=== PATIENT | female | born 1975 | race Caucasian/White ===

== ENCOUNTER 2021-08-24 11:53 | Outpatient (CLI) | payer OTHER, SELFPAY ==
--- NOTE | 2021-08-24 | MM_ITS ---
WS: [id number] SCREENING 3D TOMOSYNTHESIS DIGITAL MAMMOGRAM WITH CAD HISTORY: SCREENING COMPARISON: 06/02/2019, 05/01/2016 Bilateral CC and MLO views submitted. Computer aided detection analyzed. Breast composition: There are scattered areas of fibroglandular density. Area of mild asymmetry and distortion in the lateral RIGHT breast just above the nipple line. On the tomosynthesis evaluation this becomes less obvious. I favor this will probably be normal superimposed fibroglandular densities. On the synthetic view this is slightly lobulated and of increased density. MM/[place] [id number] IMPRESSION: BI-RADS: 0-Incomplete: Need additional imaging evaluation FOLLOW UP: Need Additional Imaging RIGHT breast: Spot compression views (CC and MLO). True ML. Ultrasound to follo w if abnormality persists.
== END 2021-08-24 11:54 | disposition home or self-care (01) ==
PROVIDERS: PCP Physician Assistant; Visit Provider Physician Assistant
DX: Z12.31 Encounter for screening mammogram for malignant neoplasm of breast (principal)
CPT/HCPCS: 77063; 77067

== ENCOUNTER 2021-09-25 13:10 | Outpatient (CLI) | payer OTHER, SELFPAY ==
--- NOTE | 2021-09-25 13:17 | MM_ITS ---
WS: [id number] ADDITIONAL VIEWS RIGHT MAMMOGRAM WITH DIGITAL BREAST TOMOSYNTHESIS. RIGHT BREAST ULTRASOUND HISTORY: ABNORMAL MAMMO COMPARISON: 08/24/2021 RIGHT MAMMOGRAM: Spot compression views and true ML with digital breast tomosynthesis and SM. The asymmetry upper-outer quadrant at a middle depth nearly resolves with additional imaging. No unde rlying mass. Ultrasound will be performed to confirm no shadowing or mass present. RIGHT BREAST ULTRASOUND 2-D and color Doppler imaging submitted. Ultrasound is directed to the upper outer quadrant of the RIGHT breast. No mass or distortion identif ied. There is no shadowing. MM/[place] [id number] IMPRESSION: BI-RADS: 2-Benign FOLLOW UP: 1 Year Follow-up
== END 2021-09-25 13:11 | disposition home or self-care (01) ==
PROVIDERS: PCP Physician Assistant; Visit Provider Physician Assistant
DX: R92.8 Other abnormal and inconclusive findings on diagnostic imaging of breast (principal)
CPT/HCPCS: 76642; 77061

== ENCOUNTER → 2021-12-10 08:30 | Outpatient (BNVA) | payer OTHER, SELFPAY | PROVIDERS: Visit Provider Family Medicine | DX: F40.243 Fear of flying (principal); F41.8 Other specified anxiety disorders; Z76.89 Persons encountering health services in other specified circumstances; Z86.2 Personal history of diseases of the blood and blood-forming organs and certain disorders involving the immune mechanism | CPT/HCPCS: 80053; 80061; 83036; 84443; 85025 ==

== ENCOUNTER 2022-10-09 09:13 | Outpatient (CLI) | payer OTHER, SELFPAY ==
--- NOTE | 2022-10-09 09:23 | MM_ITS ---
WS: [id number] SCREENING DIGITAL TOMOSYNTHESIS MAMMOGRAM WITH CAD HISTORY: SCREENING COMPARISON: 09/25/2021, 08/24/2021, 06/02/2019 Bilateral CC and MLO with tomosynthesis views submitted. Synthetic mammography reviewed. Computer aid ed detection analyzed. Breast composition: There are scattered areas of fibroglandular density. No suspicious masses, microc alcifications or architectural distortion. MM/[place] [id number] IMPRESSION: BI-RADS: 1-Negative FOLLOW UP: 1 Year Follow-up
== END 2022-10-09 09:14 | disposition home or self-care (01) ==
LOC: RAD 09:15
PROVIDERS: PCP Family Medicine; Visit Provider Family Medicine
DX: Z12.31 Encounter for screening mammogram for malignant neoplasm of breast (principal)
CPT/HCPCS: 77063; 77067

== ENCOUNTER → 2022-12-30 15:20 | Outpatient (BNVA) | payer OTHER, SELFPAY | PROVIDERS: PCP Family Medicine; Visit Provider Family Medicine | DX: Z01.419 Encounter for gynecological examination (general) (routine) without abnormal findings (principal) | CPT/HCPCS: 88175 ==

== ENCOUNTER → 2023-01-06 10:56 | Outpatient (BNVA) | payer OTHER, SELFPAY | PROVIDERS: PCP Family Medicine; Visit Provider Surgery | DX: Z12.11 Encounter for screening for malignant neoplasm of colon (principal) | CPT/HCPCS: 99024; 99202; 99203 ==

== ENCOUNTER 2023-10-14 08:50 | Outpatient (CLI) | payer BC, SELFPAY ==
--- NOTE | 2023-10-14 09:00 | MM_ITS ---
WS: [id number] BILATERAL 3D TOMOSYNTHESIS DIGITAL SCREENING MAMMOGRAPHY WITH CAD CLINICAL INFORMATION: screening HISTORY: Screening mammogram. No current complaints. COMPARISON: 2022 TECHNIQUE: Bilateral CC and MLO views. FINDINGS: Scattered fibroglandular densities bilaterally. No suspicious focal mass, asymmetry, calcifications, or architectural distortion. No evidence of malignancy. MM/[place] [id number] IMPRESSION: BI-RADS: 1-Negative FOLLOW UP: 1 Year Follow-up Recommend return to annual screening mammography.
== END 2023-10-14 08:51 | disposition home or self-care (01) ==
LOC: RAD 08:51
PROVIDERS: PCP Family Medicine; Visit Provider Family Medicine
DX: Z12.31 Encounter for screening mammogram for malignant neoplasm of breast (principal); R92.323 Mammographic fibroglandular density, bilateral breasts
CPT/HCPCS: 77063; 77067

== ENCOUNTER 2023-11-19 06:26 | Day surgery (SDC) | payer BC, SELFPAY ==
--- NOTE | 2023-11-19 06:02 | W.PM.OPSFHP ---
Same Day Surgery H&P Indication for Procedure/HPI DATE OF PROCEDURE: November 19, 2023 CHIEF COMPLAINT/INDICATIONFOR SURGICAL PROCEDURE: need for screening colonoscopy PREOP DIAGNOSIS: need for screening colonoscopy PLANNED PROCEDURE: Operation Date: 11/19/23 07:40 Proposed Procedures p Colonoscopy 44357, G0105, Z12.11(Not Applicable) - Jeb Wilson MD Medications/Allergies* Home Medications Medication Instructions Recorded Confirmed Type levonorgestrel 21 mcg/24 hr (up to 1 device intrauterine UNK 11/07/21 11/17/23 History 8 years) 52 mg intrauterine device (Mirena) famotidine 10 mg tablet 10 mg PO DAILY 01/06/23 11/17/23 History acyclovir 400 mg tablet 400 mg PO BID PRN break out 11/17/23 11/17/23 History ashwagandha root extract 500 mg 1,000 mg PO DAILY 11/17/23 11/17/23 History capsule cetirizine 10 mg tablet (Zyrtec) 10 mg PO DAILY 11/17/23 11/17/23 History Allergies/Adverse Reactions Allergy/AdvReac Type Severity Reaction Status Date / Time latex Allergy ALGY-Hives Verified 11/17/23 11:28 naproxen Allergy ALGY-Hives Verified 11/17/23 11:28 Pertinent History/Comorbid Conditions* Surgical History (Updated 12/30/22 @ 15:15 by Gely Gutierrez DO) No pertinent past surgical history Family History (Updated 01/06/23 @ 11:02 by JAIR Scott) High cholesterol Father Cancer Father colon cancer Hypertension Father Social History Smoking and tobacco/nicotine status: never used tobacco/nicotine Alcohol intake: current Alcohol intake frequency: holidays/special occasions only Substance/Drug Use: never Pertinent Exam Findings alert, oriented x 3, clear to auscultation bilaterally and regular rate & rhythm Recommendations Surgery/Procedure today Coding Level of Care Code Acute Code for Chg Fwd
[2023-11-19 06:35] VITALS: BP 134/101; PULSE 96; RESP 16; TEMP 36.4; O2SAT 98; BMI 40.6
[2023-11-19] MEDS: sodium chloride 0.9% 1,000 ML 30 ML IV (07:02)
--- NOTE | 2023-11-19 07:14 | ANES.PREANE2 ---
Pre-Anesthetic Assessment Height/Weight: Height 1.63 m Weight 107.501 kg Temp Pulse Resp BP Pulse Ox O2 Del Method 97.5 F L 96 16 134/101 98 Room Air 11/19/23 06:35 11/19/23 06:35 11/19/23 06:35 11/19/23 06:35 11/19/23 06:35 11/19/23 06:35 Preop Diagnosis: need for screening colonoscopy Operation Date: 11/19/23 07:40 Proposed Procedures p Colonoscopy 68752, G0105, Z12.11(Not Applicable) - Jeb Wilson MD Familial anesthetic complications: None Was Beta Kian taken within 24 hours: N/A Was Clonidine taken within 24 hours: N/A Last intake: Intake Last Liquid Date 11/18/23 Last Liquid Time 23:55 Last Solid Date 11/17/23 Last Solid Time 18:30 Social No alcohol and No tobacco Exam alert, oriented x 3 and clear to auscultation bilaterally Airway Mallampati: Class II Dentition: full History/ROS No significant history except as noted Pulmonary None reported CV/HEM None reported None reported Hepatic None reported GI None reported Metabolic None reported Musc/skel None reported Neuropsych None reported Anesthetic Plan ASA status: 2 Anesthesia: Anesthesia Evaluation and MAC Medications/Allergies Home Medications Medication Instructions Recorded Confirmed Last Taken Type levonorgestrel 21 mcg/24 hr (up to 1 device intrauterine UNK 11/07/21 11/19/23 11/17/23 History 8 years) 52 mg intrauterine device (Mirena) famotidine 10 mg tablet 10 mg PO DAILY 01/06/23 11/19/23 11/18/23 History alprazolam 0.25 mg tablet 0.25 mg PO DAILY PRN anxiety, 09/22/23 11/17/23 Unknown Rx flying #30 tabs nystatin 100,000 unit/gram topical 1 applic topical DAILY PRN rash 09/22/23 11/19/23 11/18/23 Rx cream #30 grams acyclovir 400 mg tablet 400 mg PO BID PRN break out 11/17/23 11/19/23 11/17/23 History ashwagandha root extract 500 mg 1,000 mg PO DAILY 11/17/23 11/17/23 11/17/23 History capsule cetirizine 10 mg tablet (Zyrtec) 10 mg PO DAILY 11/17/23 11/19/23 11/18/23 History Allergies Allergy/AdvReac Type Severity Reaction Status Date / Time latex Allergy ALGY-Hives Verified 11/17/23 11:28 naproxen Allergy ALGY-Hives Verified 11/17/23 11:28 Current Medications Generic Name Dose Route Start Last Admin Trade Name Freq PRN Reason Stop Dose Admin Sodium Chloride 1,000 mls @ 30 mls/hr 11/19/23 06:30 11/19/23 07:02 Sodium Chloride 0.9% IV 30 mls/hr .Q24H ARABELLA Administration PFSH Anesthesia Surgical History No pertinent past surgical history Family History Father Cancer colon cancer Hypertension High cholesterol Social History Smoking and tobacco/nicotine status: never used tobacco/nicotine Alcohol intake: current Alcohol intake frequency: holidays/special occasions only Substance/Drug Use: never Data Anesthesia Cardiac Studies: No Data to Display
[2023-11-19 07:26] LABS: HCG, Serum Qual Negative (Negative)
[2023-11-19 08:12] VITALS: BP 132/75; PULSE 76; RESP 12; TEMP 36.3; O2SAT 96
--- NOTE | 2023-11-19 08:18 | ANE.PACU2 ---
Inpatient post-anesthesia follow up: Vital signs: Temperature 97.4 F Pulse Rate 76 Respiratory Rate 12 Blood Pressure 132/75 Pulse Oximetry 96 Oxygen Delivery Me thod Room Air Oxygen Flow Rate Fraction of Inspir ed Oxygen Hydration adequate: Yes Nausea and vomiting: No Pain level: 0 Mental status: Baseline
[2023-11-19 08:36] VITALS: BP 121/90; PULSE 68; RESP 18; O2SAT 96
--- NOTE | 2023-11-19 08:40 | ANE.PACU2 ---
Inpatient post-anesthesia follow up: Airway intact: Yes Vital signs: Temperature 97.4 F Pulse Rate 68 Respiratory Rate 18 Blood Pressure 121/90 Pulse Oximetry 96 Oxygen Delivery Me thod Room Air Oxygen Flow Rate Fraction of Inspir ed Oxygen Hydration adequate: Yes Nausea and vomiting: No Pain level: 1 Mental status: Baseline
[2023-11-19 12:25] LABS: OR HCG Qualitative Urine Positive (Negative)
== END 2023-11-19 08:41 | disposition home or self-care (01) ==
PROVIDERS: Anesthesiology; PCP Family Medicine; Visit Provider Surgery
PROC: 0DJD8ZZ Inspection of Lower Intestinal Tract, Via Natural or Artificial Opening Endoscopic (ICD-10-PCS; CPT 45378; principal; 2023-11-19 07:40)
DX: Z12.11 Encounter for screening for malignant neoplasm of colon (principal); D12.5 Benign neoplasm of sigmoid colon
CPT/HCPCS: 36415; 45385; 81025; 84703; 88305; J2704; J7030

== ENCOUNTER → 2024-03-24 13:38 | Outpatient (BNVA) | payer BC, SELFPAY | DX: R79.89 Other specified abnormal findings of blood chemistry (principal) | CPT/HCPCS: 80053; 85025 ==

== ENCOUNTER → 2024-06-01 16:03 | Outpatient (BNVA) | payer BC, SELFPAY | PROVIDERS: Visit Provider Nurse Practitioner Women's Health | DX: Z13.1 Encounter for screening for diabetes mellitus (principal); N91.2 Amenorrhea, unspecified; N93.0 Postcoital and contact bleeding; R53.83 Other fatigue | CPT/HCPCS: 82306; 82670; 82728; 83001; 83036; 83540; 84146; 84439; 84443; 87624 ==

== ENCOUNTER → 2024-06-14 15:30 | Outpatient (BNVA) | payer BC, SELFPAY | PROVIDERS: Visit Provider Nurse Practitioner Women's Health | DX: N91.2 Amenorrhea, unspecified (principal) | CPT/HCPCS: 76830 ==

== ENCOUNTER → 2024-08-02 08:01 | Outpatient (BNVA) | payer BC, SELFPAY | PROVIDERS: Visit Provider Nurse Practitioner Women's Health | DX: E55.9 Vitamin D deficiency, unspecified (principal); N91.2 Amenorrhea, unspecified | CPT/HCPCS: 82306; 82670; 83001 ==

== ENCOUNTER 2024-10-14 14:31 | Outpatient (CLI) | payer BC, SELFPAY ==
--- NOTE | 2024-10-14 14:35 | MM_ITS ---
WS: [id number] BILATERAL 3D TOMOSYNTHESIS DIGITAL SCREENING MAMMOGRAPHY WITH CAD CLINICAL INFORMATION: SCREENING HISTORY: Screening mammogram. No current complaints. COMPARISON: 2023 TECHNIQUE: Bilateral CC and MLO views. FINDINGS: Scattered fibroglandular densities bilaterally. No suspicious focal mass, asymmetry, calcifications, or architectural distortion. No evidence of malignancy. MM/MM scr BI tomosynthesis [id number] IMPRESSION: DENSITY: There are scattered areas of fibroglandular density. BI-RADS: 1 - Negative. FOLLOW UP: 1 Year Follow-up Recommend return to annual screening mammography.
== END 2024-10-14 14:32 | disposition home or self-care (01) ==
DX: Z12.31 Encounter for screening mammogram for malignant neoplasm of breast (principal); R92.323 Mammographic fibroglandular density, bilateral breasts
CPT/HCPCS: 77063; 77067

== ENCOUNTER → 2024-11-22 08:59 | Outpatient (BNVA) | payer BC, SELFPAY | DX: R73.03 Prediabetes (principal) | CPT/HCPCS: 80053; 83036 ==